=== PATIENT | female | born 1960 | race Caucasian/White ===

== ENCOUNTER 2016-12-30 11:52 | Observation (INO) | payer BC ==
[~2016-12-30] VITALS: Ht 160 cm; Wt 81.0 kg
--- NOTE | ~2016-12-30 | DS ---
PATIENT'S NAME: FABRICE REYNOSO [facility] AGE: 56 Y [address] ROOM: [address] [address] LOCATION: [facility] ADMIT DATE: 12/30/2016 Discharge Summary DISCHARGE DATE: 01/02/2017 FAMILY PHYSICIAN: Audrey Almonte APRN ATTENDING PHYSICIAN: Haroldo Gallardo ADMITTING DIAGNOSIS: Right lateral tibial plateau fracture. DISCHARGE DIAGNOSIS: Right lateral tibial plateau fracture. SECONDARY DIAGNOSES: 1. History of overactive bladder. 2. Gastroesophageal reflux disease. 3. Depression. 4. History of obstructive sleep apnea. 5. History of fatty liver. CONSULTATIONS: To the Hospitalist Service for medical management. PROCEDURE: On December 31, 2016, the patient underwent the following procedure by Dr. Gallardo: 1. Open reduction and internal fixation of right bicondylar tibial plateau fracture (Schatzker ). 2. Arthroscopically aided fixation of intra-articular lateral split and depression plateau fractures. 3. Placement of Norian bone cement. HISTORY OF PRESENT ILLNESS: The patient is a 56-year-old female, who had been seen by Dr. Gallardo in the past when he fixed a distal radius fracture and she made a full recovery. Two weeks prior to being seen, the patient was walking down some steps when she sustained a tibial plateau fracture. She was referred to Dr. Gallardo and/or Dr. Angela for recommended surgery. The patient complained about right knee pain and swelling when seen by Dr. Gallardo. She was wearing a knee brace when seen. The patient had been placed on Xarelto for DVT prophylaxis. She was nonweightbearing on the injured extremity in her knee brace. HOSPITAL COURSE: The patient underwent the above-described procedure on December 30, 2016, and tolerated the procedure well. The Hospitalist Service was consulted for medical management. They did optimize her medical care during her admission. The patient was made toe-touch weightbearing in the lower extremity in her knee brace. She did work with Physical Therapy during her admission. Postoperatively, the patient was placed on TREAD TUBER MACHINE OPERATOR pump due to pain. She was eventually transitioned to oral medications and tolerated it well. The patient was found to be stable for discharge including her pain control on PATIENT'S NAME: [place] [employer] [facility]FABRICE Lebron [facility] AGE: 56 Y [address] ROOM: [facility] [place], [place] [address] LOCATION: [facility] ADMIT DATE: 12/30/2016 Discharge Summary DISCHARGE DATE: 01/02/2017 FAMILY PHYSICIAN: Audrey Almonte APRN ATTENDING PHYSICIAN: Haroldo Gallardo January 02, 2017, and was discharged home at that time. DISCHARGE INSTRUCTIONS: The patient may be toe touch weightbearing of right lower extremity. The patient set up to do physical therapy at home. She is to wear her knee brace at all times except for when showering. She may resume her previous home diet. DISCHARGE MEDICATIONS: New medications, 1. Percocet 10/325 one tablet every 4 hours as needed for pain. 2. Diazepam 5 mg half a tablet every 6 hours as needed for pain. 3. Colace 100 mg p.o. b.i.d. as needed for constipation. 4. MiraLAX 17 g p.o. daily as needed for constipation. Otherwise, the patient is to continue with her preadmission medications as instructed by her Internal Medicine doctor including the Xarelto for DVT prophylaxis. FOLLOWUP: The patient is to follow up in Dr. Gallardo' office on January 15, 2017, at 11:00 a.m. for initial postoperative visit. DISCHARGE STATUS: Good. CJ ANGELA PA-C FOR MD LLOYD SWANNW/regan /[id number] d: 01/16/17 0631 t: 01/19/17 1445, DISCHARGE SUMMARY
--- NOTE | ~2016-12-30 | OR ---
PATIENT'S NAME: FABRICE REYNOSO [facility] AGE: 56 Y [address] ROOM: [place] [address] LOCATION: [facility] ADMIT DATE: 12/30/2016 OR/Procedure Report DISCHARGE DATE: FAMILY PHYSICIAN: Audrey Almonte APRN ATTENDING PHYSICIAN: MARCE CARETR SURGEON: Marce Carter MD CODE MACHINE OPERATOR: Harry Patel PA-C. DATE OF PROCEDURE: 12/30/2016 PREOPERATIVE DIAGNOSIS: Right split and depressed Schatzker tibial plateau fracture. POSTOPERATIVE DIAGNOSIS: Right split and depressed Schatzker tibial plateau fracture. PROCEDURE: 1. Open reduction and internal fixation of right bicondylar tibial plateau fracture (Schatzker ). 2. Arthroscopically aided fixation of intraarticular lateral split and depressed plateau fracture. 3. Placement of Norian bone cement. 4. Use of intraoperative fluoroscopy, less than 1 hour. ANESTHESIA: General endotracheal anesthesia. FLUIDS: See anesthesia report. EBL: Less than 50 mL. SPECIMEN: None. COMPLICATIONS: None. DISPOSITION: Stable in PACU. COUNTS: All counts were correct. IMPLANTS: Synthes proximal tibial lateral periarticular locking plate and screws and Norian bone cement. INDICATIONS: Ms. Reynoso is a 56-year-old female, who underwent the noted procedures above. The risks, benefits, and alternatives pursuing a surgical intervention were discussed with the patient in detail. I marked the patient's right lower extremity indicating the correct surgical site. Anesthesia was consulted for their perioperative evaluation of the patient. PATIENT'S NAME: FABRICE REYNOSO [facility] AGE: 56 Y [address] ROOM: [place] [address] LOCATION: [facility] ADMIT DATE: 12/30/2016 OR/Procedure Report DISCHARGE DATE: FAMILY PHYSICIAN: Audrye Almonte APRN ATTENDING PHYSICIAN: MARCE CARTER DESCRIPTION OF PROCEDURE: The patient was brought from the holding area to the operating room. A time-out was performed. Anesthesia was administered. Ancef 2 g antibiotic was administered for perioperative prophylaxis. The right lower extremity was then prepped and draped in a sterile fashion. I turned my attention to the right leg. An Esmarch was used to exsanguinate the limb, and the tourniquet was inflated to 250 mmHg. I began with a diagnostic arthroscopy of the knee joint. I began with a medial arthroscopic portal and performed a diagnostic procedure. There was hemarthrosis present. I then introduced a shaver into the lateral portal using both portals from the previous arthroscopy. I performed an extensive debridement inside the joint and identified the lateral tibial plateau where there was a large depressed fragment at the posterior aspect of the lateral plateau. The lateral meniscus appeared intact. I then began by making a large lateral incision over the knee and proximal tibia. I split the IT band and took down a portion of the tibialis anterior musculature. I identified the proximal lateral aspect of the tibial plateau. Using osteotomes, I created a bone window and then introduced a bone tamp. Under fluoroscopy, I tamped up the articular surface at the posterolateral aspect of the tibial plateau. There was a split portion of plateau that extended into the metadiaphyseal region that appeared otherwise nondisplaced. I then introduced Norian bone cement to fill the bone void. I then selected a 6-hole plate to bridge the medial and lateral plateaus. Using a Cantu Tong [id number] clamps, I approximated the medial and lateral tibial plateaus. I provisionally pinned the plate in place. I confirmed the position fluoroscopically. I then placed a compression screw into the proximal plateau to bring the medial and lateral plateaus together. Notably, there were metallic screws from a previous ACL reconstruction. I drilled for, measured, and placed the one compression screw. I then locked screws around it in the proximal and distal row. Once I achieved proximal fixation, I then placed a compression screw into the shaft below the metadiaphyseal region where the fracture propagated in the sagittal plane. I measured for, drilled, and placed a compression screw and achieved good bony compression. I placed 2 locking screws distal to the screw to achieve 6 cortices of fixation distal to the fracture site. A Hohmann screw was then placed proximally across the lateral and medial plateaus. A second-look arthroscopy indicated that the articular surface had been tamped up, and that there was no extravasation of bone cement into the joint. PATIENT'S NAME: FABRICE REYNOSO [facility] AGE: 56 Y [address] ROOM: [address] [address] LOCATION: [facility] ADMIT DATE: 12/30/2016 OR/Procedure Report DISCHARGE DATE: FAMILY PHYSICIAN: Audrey Almonte APRN ATTENDING PHYSICIAN: MARCE CARTER Final fluoroscopic images revealed evidence of a successful open reduction and internal fixation of bicondylar tibial plateau fracture with the use of a Norian bone cement. The wounds were then copiously irrigated with normal sterile saline solution and closed in layers. [place] were used to approximate the skin. The tourniquet was let down. Sterile dressing was placed in the form of Xeroform, followed by 4x4, Webril, and Shahid bandage wrap from the toes up to the proximal thigh. The patient was then transferred from the operating table onto the stretcher and extubated. She was brought to the recovery room in stable condition. There were no intraoperative complications noted. Of note, my PA, Harry Patel PA-C, played an integral role in the intraoperative care of this patient. This included preoperative positioning, intraoperative expert retraction, and closing and dressing functions. IMPRESSION: The patient is status post the noted procedures above. PLAN: The patient will be toe-touch weightbearing on the right lower extremity. She will otherwise encouraged to rest, ice, and elevate the extremity going forward. She has a hinged knee brace, which will remain locked in extension for now. Postoperative pain control in the form of Percocet and IV morphine as needed for pain. DVT prophylaxis will be in the form of Lovenox. The Hospitalist Service will be consulted for management of the patient's concomitant medical comorbidities. Physical Therapy and Occupational Therapy will be consulted for early ambulation, prevention of deconditioning. Postoperative antibiotics were administered per routine. She will be admitted overnight for observation. I will continue to follow the patient closely in postoperative period. MD SUJATHA SWANN/regan /[id number] d: 12/31/16 0037 t: 12/31/16 1706, OPERATIVE SUMMARY
[~2016-12-30 11:52] MED LIST: AMBIEN CR6.25 MG PO; BIPAP INH; DILAUDID 4MG4 MG PO; DOXYCYCLINE100 MG PO; DULOXETINE HCL60 MG PO; NEURONTIN100 MG PO; PERCOCET 10-321 EACH PO; PRILOSEC20 MG PO; PROBIOTIC1 EAC1 PO; STOOL SOFTENER1 EACH PO; TAB-A-VITE1 EACH; VIIBRYD40 MG PO; VITAMIN B COMP1 EACH PO; VITAMIN D5000 UNIT PO; XARELTO10 MG PO
--- NOTE | 2016-12-31 04:25 | NUR ---
Patient alert and oriented x3, csm with in normal limits, has brace to right leg, dressing clean dry and intact, ice to right ankle, had morphine ARCHITECTURE ANALYST when she got to the floor, insisted that it be changed to a diluaid ARCHITECTURE ANALYST, recieved order from to change it to the diluadid, then patient was wanting to switch to oral percocet because she thought we could shut off the ETCO2 monitor, she has the diluadid ARCHITECTURE ANALYST which has kept her pain under control when she uses it correctly, wears BIPAP at night, has not rested much tonight
[2016-12-31 05:42] LABS: BASOPHIL % 0.1 %; HEMATOCRIT 38.3 % (33.0-46.0); HEMOGLOBIN 12.6 g/dL (10.0-15.0); IMMATURE GRANULOCYTE % 0.3 %; LYMPHOCYTE # 1.4 K/uL (0.8-4.0); LYMPHOCYTE % 11.5 %; MCH 29.2 pg (27.0-34.0); MCHC 32.9 gm/dL (32.0-36.5); MCV 88.7 fl (83.0-98.0); MONOCYTE # 1.5 K/uL (0.0-1.0); MONOCYTE % 11.7 %; MPV 9.1 fl (9.4-12.4); NEUTROPHIL # (ANC) 9.5 K/uL (1.8-7.8); NEUTROPHIL % 76.4 %; NRBC % 0 /100WBC (0-0.00); PLATELET COUNT 355 K/uL (150-450); RBC 4.32 M/uL (3.50-5.50); WBC 12.4 K/uL (4.0-11.0)
--- NOTE | 2016-12-31 16:34 | NUR ---
Pt had pain issues today. Pt weaned off INSECTICIDE EXPERT and started on po dilaudid alternating with percocet. Pt had one soma this shift. Last po dilaudid 2 mg at 1600. Pt up to commode with one assist. Pt has ETCO2 monitor on until 2200. VSS, pt on 1L O2 per nc. Pt wears cpap at noc. Pt SL. Pt AOx3. CSM's intact. Pt denies N/V.
--- NOTE | 2016-12-31 18:41 | NUR ---
I am preceptor this shift for Jareth Cruz and agree wtih his charting
--- NOTE | 2017-01-01 04:26 | NUR ---
Significant Event: Dressing is clean, dry and intact. CSM WNL. Voids without difficulty. 1 assist with transfers. Dilaudid last at 0230. CPAP. Immobilizer to leg. NWB L) leg. On room air. Follow up:
--- NOTE | 2017-01-01 12:30 | NUR ---
Introduced self and care management services to patient. Lives in [place] with spouse. Will go home on discharge, denies needs. Will be home alone during the day but moving okay and doesn't anticipate any needs. Will follow.
--- NOTE | 2017-01-01 17:10 | NUR ---
Pt alert, oriented. She has been up to BSC about every 2 hrs, up recliner. Amb to door x1 with PT. Had dizziness at that time. She has had headache rated at 5 on and off and leg pain up to a 5. Hip pain Rt earlier at 5 that subsided. Pt CSM WNL. Dressing dry and intactl. Uses IS. Has had dilaudid po x3, last at 1240 and percocet po x1, last at 1645. Pt started on meds for bowels. Leg elevated and ice to leg on and off. Brace on Rt leg. She is one asst and NWB Rt. Uses own BIpap at [facility]. She might go home tomorrow.
--- NOTE | 2017-01-02 04:51 | NUR ---
Significant Event: Dressing is clean, dry and intact. CSM WNL. Voids without difficulty. 1 assist with transfers. Dilaudid at 0416. Soma at 0056. CPAP. Follow up:
[2017-01-02] MEDS ORDERED: MIRALAX17 GM PO (13:16)
[2017-01-02] MEDS ORDERED: COLACE100 MG PO (13:18)
[2017-01-02] MEDS ORDERED: VALIUM5 MG PO (13:19)
--- NOTE | 2017-01-02 15:03 | NUR ---
Received call from charge nurse that pt wants HH and physician marking order. I talked with patient and she does want home P.T. since she can't get out and about. Told her I would call [facility] and fax orders and they will check with her insurance and call her to let her know what insurance covers and set up time to come out, she asks if they will call her Thursday and I told her they would. Called and made referral to Shalini at [facility] [phone] and faxed referral and orders to her at [phone]. She says [facility] has good benefit for home P.T. but will double check and call pt on Thursday to set up time to go out.
--- NOTE | 2017-01-02 18:52 | NUR ---
Pt discharged to go home with spouse at 1740 today. She ambulates with walker, gait belt, NWB on Rt and standby assist. Is steady and does well. Hinged brace on Rt leg and shira dressing leg dry and intact. CSM WNL to Rt leg. Pt has rated pain at 3-5 this shift with good pain relief. She voids well. Pt has own CPAP she has used here. Pt has all belongings. Verbalizes understanding of instructions, home meds, activity, physician followup. Home in stable condition
== END 2017-01-02 17:53 | disposition disaster alternative care site (69) ==
LOC: G3N 11:52 → GSDC 11:52 → GPOC 13:00 → G3N 19:10 → GSDC 19:11 → G3N 19:11
PROVIDERS: ADMIT Orthopaedic Surgery Adult Reconstructive Orthopaedic Surgery
PROC: 0QSG04Z Reposition Right Tibia with Internal Fixation Device, Open Approach (ICD-10-PCS; principal; 2016-12-30)
DX: S82.141A Displaced bicondylar fracture of right tibia, initial encounter for closed fracture (principal); F32.9 Major depressive disorder, single episode, unspecified; K21.9 Gastro-esophageal reflux disease without esophagitis; G47.33 Obstructive sleep apnea (adult) (pediatric); E66.9 Obesity, unspecified; Z68.32 Body mass index [BMI] 32.0-32.9, adult; Z88.1 Allergy status to other antibiotic agents; Z88.8 Allergy status to other drugs, medicaments and biological substances; Z48.89 Encounter for other specified surgical aftercare; Z79.899 Other long term (current) drug therapy; Z90.49 Acquired absence of other specified parts of digestive tract; Z90.710 Acquired absence of both cervix and uterus; Z98.890 Other specified postprocedural states
CPT/HCPCS: C1713; G0378; J0690; J1100; J1170; J2001; J2250; J2270; J2405; J3010; J3480; J7030